=== PATIENT | female | born 1980 | race Caucasian/White ===

== ENCOUNTER 2018-07-11 19:31 | Emergency (ER) | payer SELFPAY ==
[~2018-07-11] VITALS: Ht 162.6 cm; Wt 109.2 kg
[2018-07-11 19:48] VITALS: BP 191/94; PULSE 74; RESP 20; Ht 162.6 cm; Wt 109.2 kg
== END 2018-07-11 22:04 | disposition left against medical advice (07) ==
LOC: E/R 19:31
DX: Z53.21 Procedure and treatment not carried out due to patient leaving prior to being seen by health care provider (principal)